=== PATIENT | female | born 1980 | race Caucasian/White ===

== ENCOUNTER 2017-09-21 22:08 | Emergency (ER) | payer BC, OTHER ==
[~2017-09-21] VITALS: Ht 177.8 cm; Wt 81.9 kg
[~2017-09-21 22:08] MED LIST: DOCU-131 PO; HYDR-3240 PO; IBUP-1222 PO
[2017-09-21 22:10] VITALS: BP 136/84
[2017-09-21] MEDS ORDERED: CEFTRIAXONE 1,000 MG ONE (23:43)
[2017-09-22] MEDS ORDERED: CEFTRIAXONE 1,000 MG IM ONE
== END 2017-09-22 00:09 | disposition home or self-care (01) ==
LOC: ED 23:59
DX: N61.0 Mastitis without abscess (principal)
CPT/HCPCS: 96372; 99283; J0696